=== PATIENT | female | born 1965 ===

== ENCOUNTER 2020-12-12 08:56 | Emergency (ER) | payer MEDICAID ==
[~2020-12-12 08:56] MED LIST: EPINEPHrine 1 MG/10 ML SYRINGE ONE; SODIUM BICARB 8.4% 50 MEQ/50 ML SYRINGE IV ONE
--- NOTE | 2020-12-12 09:31 | Event Note ---
ED Screening Note ED Screening Note: 55-year-old female presents with chest tightness, SOB and bilateral legs swelling. HX of cardiac. This initial assessment/diagnostic orders/clinical plan/treatment(s) is/are subject to change based on patients health status, clinical progression and re- assessment by fellow clinical providers in the ED. Further treatment and workup at subsequent clinical providers discretion. Patient/guardian urged not to elope from the ED as their condition may be serious if not clinically assessed and managed. Initial orders include: cardiac workup
[2020-12-12 09:54] LABS: Basophils % (Auto) 0.8 % (0.0-1.8); Eosinophils # (Auto) 0.4 K/mm3 (0.0-0.4); Eosinophils % (Auto) 5.8 % (0.0-4.3); Hematocrit 34.4 % (30.3-42.9); Hemoglobin 10.9 gm/dl (10.1-14.3); Lymphocytes # (Auto) 1.4 K/mm3 (1.2-5.4); Lymphocytes % (Auto) 21.3 % (13.4-35.0); Mean Corpuscular HGB Conc 32 % (30-34); Mean Corpuscular Volume 82 fl (79-97); Monocytes # (Auto) 0.6 K/mm3 (0.0-0.8); Monocytes % (Auto) 8.7 % (0.0-7.3); Platelet Count 366 K/mm3 (140-440); Red Blood Count 4.19 M/mm3 (3.65-5.03); Red Cell Distribution Width 19.7 % (13.2-15.2)
--- NOTE | 2020-12-12 10:03 | XRay Report ---
CHEST 1 VIEW 12/12/2020 9:48 AM INDICATION / CLINICAL INFORMATION: Dyspnea. COMPARISON: None available. FINDINGS: SUPPORT DEVICES: None. HEART / MEDIASTINUM: No significant abnormality. LUNGS / PLEURA: No significant pulmonary or pleural abnormality. No pneumothorax. ADDITIONAL FINDINGS: No significant additional findings. IMPRESSION: 1. No acute findings. Signer Name: Juliano Brooks DO Signed: 12/12/2020 9:58 AM Workstation Name: [id number]
[2020-12-12 10:04] LABS: INR 1.08 (0.87-1.13)
[2020-12-12 10:05] LABS: Partial Thromboplastin Time 36.8 Sec. (24.2-36.6)
[2020-12-12 10:10] LABS: Alanine Aminotransferase 14 units/L (7-56); Albumin 3.4 g/dL (3.9-5); BUN/Creatinine Ratio 17; Blood Urea Nitrogen 17 mg/dL (7-17); Calcium 8.6 mg/dL (8.4-10.2); Hemolysis Index 19
--- NOTE | 2020-12-12 10:18 | Emergency Department Report ---
<JAS VILLELA - Last Filed: 12/12/20 20:20> ED Shortness of Breath HPI - General Chief Complaint: Dyspnea/Respdistress Stated Complaint: PAIN IN WAIST/KNEE AND FEET/GOUT Time Seen by Provider: 12/12/20 09:29 - Related Data Allergies Allergy/AdvReac Type Severity Reaction Status Date / Time No Known Allergies Allergy Verified 12/12/20 09:08 ED Course - Reevaluation(s) Reevaluation #1: 12/12/20 20:03 I was walking through fast track and saw the door opened in room 35 and the patient appeared to be unresponsive and slumped slightly over to the left side I immediately called a CODE BLUE pts cardiac rhythm monitoring was not connected, I advised nurse to connect monitor and to get a crash cart in a respiratory cart I advised nurse to inform attending physician Able to palpate a right radial pulse Oxygen saturations 100% on a nonrebreather Patient is responsive to painful stimuli and suctioning Dr. Robertson, hospitalist was called to bedside to take over care of patient and advised to order a CT head without contrast and a CT angio chest ED Medical Decision Making - Lab Data Result diagrams: 12/12/20 09:39 12/12/20 09:39 ED Disposition Clinical Impression: CHF exacerbation, Bilateral leg edema, SOB (shortness of breath), Hx of deep venous thrombosis, Anticoagulant long-term use, Hyponatremia Disposition: 20 Condition: Stable Referrals: PRIMARY CARE,MD [Primary Care Provider] - 3-5 Days <LILIYA RECINOS - Last Filed: 12/15/20 06:39> ED Shortness of Breath HPI - General Source: patient, old records reviewed (NO PREVIOUS VISIT [facility]) Mode of arrival: Wheelchair Limitations: Physical Limitation - History of Present Illness Initial Comments: 55-year-old female the past medical history morbid obesity, gout, CHF, hypertension, DVT x3 currently on Eliquis presents to the hospital complaining of worsening lower extremity edema for the past 2 days and inability to walk secondary to severe edema. Patient also complains of shortness of breath worse with exertion. She has chronic orthopnea for the past 12 years without change. She denies diagnosis of sleep apnea. She has been compliant with her Eliquis 5 mg daily, Lasix 40 mg daily, and allopurinol 100 mg daily however, she has been noncompliant with her blood pressure medication because it gives her headache. Patient reports symptoms started 2 months ago with feet pain secondary to gout and swelling started after using Epson salt soaks for suspected gout. She has been in and out of [facility] and states they keep giving her steroids shots and Percocet and discharged her home. For the past 2 days so swelling has been more severe and she is unable to ambulate. She reports she had outpatient echocardiogram by her [place] train station agent on December 03 but does not know the results. Patient denies chest pain, cough, fever. She is unvaccinated for Covid ED Review of Systems ROS: Stated complaint: PAIN IN WAIST/KNEE AND FEET/GOUT Other details as noted in HPI Comment: All other systems reviewed and negative ED Past Medical Hx - Past Medical History Previous Medical History?: Yes Hx Hypertension: Yes Hx Congestive Heart Failure: Yes Hx Deep Vein Thrombosis: Yes Hx Asthma: Yes (Gout) Additional medical history: Bronchitis - Surgical History Past Surgical History?: Yes Additional Surgical History: hemmeroids. - Social History Smoking Status: Current Every Day Smoker Substance Use Type: Alcohol, Marijuana ED Physical Exam - General Limitations: Physical Limitation - Other Other exam information: General: No acute distress Head: Atraumatic Eyes: normal appearance ENT: Moist mucous membranes Neck: Normal appearance, no midline tenderness Chest: Clear to auscultation bilaterally, tachypnea noted with speaking CV: Regular rate and rhythm Abdomen: Soft, normal bowel sounds, nontender, nondistended, no rebound or guarding Back: Normal inspection Extremity: Significant bilateral lower extremity edema extending to thigh. No calf tenderness, no warmth, no erythema Neuro: Alert O x 3, no facial asymmetry, speech clear, no gross motor sensory deficit Psych: Appropriate behavior ED Course Vital Signs 12/12/20 12/12/20 12/12/20 08:58 11:45 16:00 Temperature 98.4 F Pulse Rate 81 Respiratory 26 H Rate Blood Pressure 119/56 Blood Pressure 181/94 [Left] O2 Sat by Pulse 100 96 Oximetry 12/12/20 12/12/20 17:35 21:16 Temperature Pulse Rate 100 H Respiratory 19 18 Rate Blood Pressure Blood Pressure [Left] O2 Sat by Pulse 96 Oximetry ED Medical Decision Making - Lab Data Result diagrams: 12/12/20 09:39 12/12/20 09:39 Lab Results 12/12/20 12/12/20 12/12/20 Range/Units 09:39 09:39 09:39 WBC 6.6 (4.5-11.0) K/mm3 RBC 4.19 (3.65-5.03) M/mm3 Hgb 10.9 (10.1-14.3) gm/dl Hct 34.4 (30.3-42.9) % MCV 82 (79-97) fl MCH 26 L (28-32) pg MCHC 32 (30-34) % RDW 19.7 H (13.2-15.2) % Plt Count 366 (140-440) K/mm3 Lymph % (Auto) 21.3 (13.4-35.0) % [place] % (Auto) 8.7 H (0.0-7.3) % Eos % (Auto) 5.8 H (0.0-4.3) % Baso % (Auto) 0.8 (0.0-1.8) % Lymph # (Auto) 1.4 (1.2-5.4) K/mm3 [place] # (Auto) 0.6 (0.0-0.8) K/mm3 Eos # (Auto) 0.4 (0.0-0.4) K/mm3 Baso # (Auto) 0.0 (0.0-0.1) K/mm3 Seg Neutrophils % 63.4 (40.0-70.0) % Seg Neutrophils # 4.2 (1.8-7.7) K/mm3 PT 14.5 (12.2-14.9) Sec. INR 1.08 (0.87-1.13) APTT 36.8 H (24.2-36.6) Sec. Sodium 128 L (137-145) mmol/L Potassium 4.4 (3.6-5.0) mmol/L Chloride 87.6 L (98-107) mmol/L Carbon Dioxide 28 (22-30) mmol/L Anion Gap 17 mmol/L BUN 17 (7-17) mg/dL Creatinine 1.0 (0.6-1.2) mg/dL Estimated GFR 58 ml/min BUN/Creatinine Ratio 17 % Glucose 123 H (65-100) mg/dL Calcium 8.6 (8.4-10.2) mg/dL Total Bilirubin < 0.20 (0.1-1.2) mg/dL AST 18 (5-40) units/L ALT 14 (7-56) units/L Alkaline Phosphatase 107 (35-129) units/L Troponin T < 0.010 (0.00-0.029) ng/mL NT-Pro-B Natriuret Pep 1979 H (0-900) pg/mL Total Protein 7.5 (6.3-8.2) g/dL Albumin 3.4 L (3.9-5) g/dL Albumin/Globulin Ratio 0.8 % - EKG Data -: EKG Interpreted by [place] EKG shows normal: sinus rhythm, intervals (NORMAL), QRS complexes (NORMAL), ST-T waves (NO STEMI) Rate: normal - EKG Data When compared to previous EKG there are: previous EKG unavailable - Radiology Data Radiology results: report reviewed (Chest x-ray: No acute findings) - Medical Decision Making 55-year-old female with past medical history of obesity, CHF, DVT presents to the hospital with significant bilateral lower extremity edema and shortness of breath without hypoxia or tachycardia. Findings suggestive of CHF exacerbation with failed diuresis from her p.o. Lasix 40 mg. Patient compliant with her Eliquis 5 mg for history of DVT. Chest x-ray unremarkable. EKG unremarkable. Patient will be admitted to the hospitalist service for further treatment. IV Lasix ordered in the ED. mild hyponatremia noted Critical Care Time: No Critical care attestation.: If time is entered above; I have spent that time in minutes in the direct care of this critically ill patient, excluding procedure time. ED Disposition Is pt being admited?: Yes Time of Disposition: 10:18 (dR [place])
[2020-12-12] MEDS ORDERED: FUROSEMIDE 40 MG/4 ML INJ IV ONE (10:20)
[2020-12-12] MEDS ORDERED: ACETAMINOPHEN 325 MG TAB PO PRN (11:45)
[2020-12-12] MEDS ORDERED: ONDANSETRON 4 MG/2 ML INJ IV PRN (11:45)
--- NOTE | 2020-12-12 11:45 | History and Physical Report ---
History of Present Illness Date of examination: 12/12/20 Date of admission: 12/12/2020. Chief complaint: SOB, lower extremity swelling History of present illness: 55-year-old female the past medical history morbid obesity, gout, CHF, hypertension, DVT x3 currently on Eliquis presents to the hospital complaining of worsening lower extremity edema for the past 2 days and inability to walk secondary to severe edema. Patient also complains of shortness of breath worse with exertion. She has chronic orthopnea for the past 12 years without change. She denies diagnosis of sleep apnea. She has been compliant with her Eliquis 5 mg daily, Lasix 40 mg daily, and allopurinol 100 mg daily however, she has been noncompliant with her blood pressure medication because it gives her headache. Patient reports symptoms started 2 months ago with feet pain secondary to gout and swelling started after using Epson salt soaks. She has been in and out of [facility] and states they keep giving her steroids shots and Percocet and discharged her home. For the past 2 days so swelling has been more severe and she is unable to ambulate. She reports she had outpatient echocardiogram by her [place] helper marble finisher on December 03 but does not know the results. Patient denies chest pain, cough, fever. She is unvaccinated for Covid Past History Past Medical History: DVT, heart failure, hypertension, other (Gout, obesity) Past Surgical History: No surgical history Social history: no significant social history Family history: no significant family history Medications and Allergies Allergies Allergy/AdvReac Type Severity Reaction Status Date / Time No Known Allergies Allergy Verified 12/12/20 09:08 Review of Systems All systems: negative Exam - Constitutional Vitals: Temp Pulse Resp BP Pulse Ox 98.4 F 81 26 H 119/56 100 12/12/20 08:58 12/12/20 08:58 12/12/20 08:58 12/12/20 08:58 12/12/20 08:58 General appearance: Present: no acute distress, well-nourished - EENT Eyes: Present: PERRL ENT: hearing intact, clear oral mucosa - Neck Neck: Present: supple, normal ROM - Respiratory Respiratory effort: normal Respiratory: bilateral: diminished, rales - Cardiovascular Heart Sounds: Present: S1 & S2. Absent: rub, click - Extremities Extremities: pulses symmetrical Extremity abnormal: edema (4 +) Peripheral Pulses: within normal limits - Abdominal General gastrointestinal: Present: soft, non-tender, non-distended, normal bowel sounds Female genitourinary: Present: normal - Integumentary Integumentary: Present: clear, warm, dry - Musculoskeletal Musculoskeletal: gait normal, strength equal bilaterally - Psychiatric Psychiatric: appropriate mood/affect, intact judgment & insight - Neurologic Neurologic: CNII-XII intact, moves all extremities HEART Score - HEART Score Troponin: Troponin T < 0.010 ng/mL (0.00-0.029) 12/12/20 09:39 Results - Labs CBC & Chem 7: 12/12/20 09:39 10 09:39 Labs: Laboratory Last Values WBC 6.6 K/mm3 (4.5-11.0) 12/12/20 09:39 RBC 4.19 M/mm3 (3.65-5.03) 12/12/20 09:39 Hgb 10.9 gm/dl (10.1-14.3) 12/12/20 09:39 Hct 34.4 % (30.3-42.9) 12/12/20 09:39 MCV 82 fl (79-97) 12/12/20 09:39 MCH 26 pg (28-32) L 12/12/20 09:39 MCHC 32 % (30-34) 12/12/20 09:39 RDW 19.7 % (13.2-15.2) H 12/12/20 09:39 Plt Count 366 K/mm3 (140-440) 12/12/20 09:39 Lymph % (Auto) 21.3 % (13.4-35.0) 12/12/20 09:39 [place] % (Auto) 8.7 % (0.0-7.3) H 12/12/20 09:39 Eos % (Auto) 5.8 % (0.0-4.3) H 12/12/20 09:39 Baso % (Auto) 0.8 % (0.0-1.8) 12/12/20 09:39 Lymph # (Auto) 1.4 K/mm3 (1.2-5.4) 12/12/20 09:39 [place] # (Auto) 0.6 K/mm3 (0.0-0.8) 12/12/20 09:39 Eos # (Auto) 0.4 K/mm3 (0.0-0.4) 12/12/20 09:39 Baso # (Auto) 0.0 K/mm3 (0.0-0.1) 12/12/20 09:39 Seg Neutrophils % 63.4 % (40.0-70.0) 12/12/20 09:39 Seg Neutrophils # 4.2 K/mm3 (1.8-7.7) 12/12/20 09:39 PT 14.5 Sec. (12.2-14.9) 12/12/20 09:39 INR 1.08 (0.87-1.13) 12/12/20 09:39 APTT 36.8 Sec. (24.2-36.6) H 12/12/20 09:39 Sodium 128 mmol/L (137-145) L 12/12/20 09:39 Potassium 4.4 mmol/L (3.6-5.0) 12/12/20 09:39 Chloride 87.6 mmol/L (98-107) L 12/12/20 09:39 Carbon Dioxide 28 mmol/L (22-30) 12/12/20 09:39 Anion Gap 17 mmol/L 12/12/20 09:39 BUN 17 mg/dL (7-17) 12/12/20 09:39 Creatinine 1.0 mg/dL (0.6-1.2) 12/12/20 09:39 Estimated GFR 58 ml/min 12/12/20 09:39 BUN/Creatinine Ratio 17 % 12/12/20 09:39 Glucose 123 mg/dL (65-100) H 12/12/20 09:39 Calcium 8.6 mg/dL (8.4-10.2) 12/12/20 09:39 Total Bilirubin < 0.20 mg/dL (0.1-1.2) 12/12/20 09:39 AST 18 units/L (5-40) 12/12/20 09:39 ALT 14 units/L (7-56) 12/12/20 09:39 Alkaline Phosphatase 107 units/L (35-129) 12/12/20 09:39 Troponin T < 0.010 ng/mL (0.00-0.029) 12/12/20 09:39 NT-Pro-B Natriuret Pep 1979 pg/mL (0-900) H 12/12/20 09:39 Total Protein 7.5 g/dL (6.3-8.2) 12/12/20 09:39 Albumin 3.4 g/dL (3.9-5) L 12/12/20 09:39 Albumin/Globulin Ratio 0.8 % 12/12/20 09:39 Assessment and Plan Assessment and plan: Acute CHF. Hypertension History of DVT History of gout Morbid obesity 12/12/2020. Patient will be admitted and placed on heart failure exacerbation pathway. We will attempt to obtain old records from [place] to ascertain systolic/diastolic function. Consult cardiology for further evaluation. The patient will be treated with IV Lasix. BNP is mildly elevated at 1900.
[2020-12-12] MEDS ORDERED: HYDROcodone/ACETAMINOPHEN 5-325 MG TAB PO PRN (11:46)
[2020-12-12] MEDS ORDERED: MORPHINE 4 MG/1 ML INJ IV PRN (11:46)
[2020-12-12 17:34] VITALS: BP 181/94
[2020-12-12] MEDS ORDERED: NALOXONE 2 MG/2 ML INJ ONE (20:25)
--- NOTE | 2020-12-12 21:05 | Procedure Note ---
Pre-op diagnosis: Acute hypoxemic respiratory failure, acute hypercapnic respiratory failure Post-op diagnosis: same Procedure: Right internal jugular vein central line placement. Under ultrasound guidance A timeout was taken to verify the correct patient correct procedure and correct operative site. The patient was prepped and draped in the usual sterile fashion. Local anesthesia was attained with lidocaine 1%. The ultrasound was utilized to localize the right internal jugular vein without difficulty. The Seldinger technique was used to access the right internal jugular vein. A seeker needle was used to access the right internal jugular vein under ultrasound guidance a guidewire was subsequently passed through the seeker needle into the right internal jugular vein without difficulty. The seeker needle was subsequently removed over the guidewire. A scalpel was used to incise the skin. A dilator was then inserted over the guidewire into the right internal jugular vein without difficulty and subsequently removed. A preflushed triple-lumen catheter was then advanced into the right internal jugular vein without difficulty. All 3 ports flush and draw with ease. The triple-lumen was sewn in place. A Biopatch was placed at the insertion site. Anesthesia: local Surgeon: RICHAR RAMIREZ Estimated blood loss: none Pathology: none Condition: critical Disposition: ICU
--- NOTE | 2020-12-12 21:07 | Event Note ---
Date: 12/12/20 Patient was found unresponsive. I was notified and presented to bedside. The patient was found to be in respiratory distress. An arterial blood gas was ordered. And intubation was attempted but the patient was found to have a positive gag reflex and was able to protect her airway without difficulty. The patient was subsequently placed on noninvasive positive pressure ventilation. With repeat arterial blood gas in 60 minutes. Patient found to have hypercapnic respiratory failure. Patient treated with hyperventilation and repeat arterial blood gas in 1 hour. 60 minutes critical care time dedicated to patient care.
--- NOTE | 2020-12-12 22:13 | XRay Report ---
CHEST 1 VIEW 12/12/2020 9:00 PM INDICATION / CLINICAL INFORMATION: central line placement. COMPARISON: 12/12/2020 FINDINGS: SUPPORT DEVICES: Right IJ central venous catheter at the upper SVC. HEART / MEDIASTINUM: No significant abnormality. LUNGS / PLEURA: Increased patchy peripheral airspace opacities. No pneumothorax. ADDITIONAL FINDINGS: No significant additional findings. IMPRESSION: 1. Right IJ central venous catheter terminating at the upper SVC 2. Multifocal patchy airspace opacities. Signer Name: Juliano Brooks DO Signed: 12/12/2020 10:09 PM Workstation Name: [id number]
[2020-12-12] MEDS ORDERED: ETOMIDATE 20 MG/10 ML INJ IV ONE (22:32)
--- NOTE | 2020-12-13 00:01 | Event Note ---
Date: 12/12/20 I was called by the nurse to assess the patient in room 21, Ms. Vital. Patient has been admitted with acute on chronic respiratory failure secondary to COPD, CHF and bilateral pneumonia. Patient is tachypneic, with significant altered mental status and agitation. I reviewed patient ABG showed pH of 6.9 and PCO2 of 155. Patient is already on BiPAP with no improvement. Patient will require emergency intubation. No consent obtained since this is an emergency procedure. Using benefits assistant intubation, patient given etomidate and rocuronium. Using a glidscope, I was unable to visualized the cords secondary to redundant tissues. Patient suctioned and Ambu bag to an oxygen saturation of 100%. Another attempt to intubate failed again. I immediately notified anesthesia and Dr. Montiel arrived to patient bedside. Dr. Montiel also attempted to intubate the patient and it was unsuccessful. He decided to do a surgical airway since patient oxygen saturation is dropping even with placing a LMA. Patient oxygenating well with surgical airway in place. Patient lost her pulse. CODE BLUE announced and CPR immediately started and patient was given epinephrine and bicarb. Patient rhythm showed asystole. ACLS continued with no return of circulation. Patient pronounced at 11:25 PM. For further information please review code sheets. Dr. Jones, hospitalist operations support analyst inform about the patient. Critical care time spent at bedside is 45 minutes.
[2020-12-13] MEDS ORDERED: ENOXAPARIN 40 MG/0.4 ML INJ SUB-Q SCH (10:00)
[2020-12-13] MEDS ORDERED: FUROSEMIDE 40 MG/4 ML INJ IV SCH (10:00)
--- NOTE | 2020-12-14 11:17 | Electrocardiograph Report ---
[facility] Test Date: 2020-12-12 Test Time: 09:37:28 Pat Name: [facility] Department: Room: A468 Gender: F Bellows Tester: ALEXANDER : 1965 Requested By: LILIYA RECINOS Order Number: [id number] Reading MD: Dayana Nelson Measurements Intervals [place] Rate: 89 P: 54 PA: 165 QRS: 53 QRSD: 89 T: 34 QT: 389 QTc: 475 Interpretive Statements Sinus rhythm Probable left atrial enlargement No previous ECG available for comparison Electronically Signed On 12-14-2020 11:16:59 EDT by Dayana Nelson
--- NOTE | 2020-12-27 11:22 | Death Summary ---
Summary - Providers Date of service: 12/27/20 Consults: 12/12/20 11:46 Consult to Physician [CONS] Routine Comment: Consulting Provider: GERARDO ALVAREZ Physician Instructions: Reason For Exam: chf - summary Date of admission: 12/12/20 Date of : 12/12/20 Reason for admission: sob Disposition: 55-year-old female the past medical history morbid obesity, gout, CHF, hypertension, DVT x3 currently on Eliquis presents to the hospital complaining of worsening lower extremity edema for the past 2 days and inability to walk secondary to severe edema. Patient also complains of shortness of breath worse with exertion. She has chronic orthopnea for the past 12 years without change. She denies diagnosis of sleep apnea. She has been compliant with her Eliquis 5 mg daily, Lasix 40 mg daily, and allopurinol 100 mg daily however, she has been noncompliant with her blood pressure medication because it gives her headache. Patient reports symptoms started 2 months ago with feet pain secondary to gout and swelling started after using Epson salt soaks. She has been in and out of [facility] and states they keep giving her steroids shots and Percocet and discharged her home. For the past 2 days so swelling has been more severe and she is unable to ambulate. She reports she had outpatient echocardiogram by her [facility] registered nurse on December 03 but does not know the results. The patient was admitted with diagnosis of acute hypoxic respiratory failure, acute heart failure exacerbation, hypertension, history of DVT (compliant on Eliquis), his tory of gout and morbid obesity. The patient was placed on the heart failure pathway. The patient was admitted to telemetry. Initial chest x-ray was negative but BNP was elevated at 1900. The patient was noted to have progressively worsening with regards to respiratory status. The patient was later placed on BiPAP but unfortunately did not tolerate the BiPAP well. Later during hospitalization, patient was found unresponsive and he patient was found to be in respiratory distress. An arterial blood gas was ordered. And intubation was attempted but the patient was found to have a positive gag reflex and was able to protect her airway without difficulty. The patient was subsequently placed on noninvasive positive pressure ventilation. With repeat arterial blood gas in 60 minutes. Patient found to have hypercapnic respiratory failure. Patient treated with hyperventilation and repeat arterial blood gas in 1 hour. 60 minutes critical care time dedicated to patient care per Dr. Chris's note. The patient further deteriorated and the patient was evaluated by the ER physician, Dr. Gibbs. There was an attempt to intubate the patient but there was much difficulty. Please see code note for details from Dr. Gibbs. Patient pronounced at 11:25 PM
== END 2020-12-12 23:50 ==
LOC: ED 08:56 → UNDOADMIN 11:45 → 4A 11:45 → ED 12-13 06:04
DX: I46.9 Cardiac arrest, cause unspecified (principal); E87.1 Hypo-osmolality and hyponatremia; I50.9 Heart failure, unspecified; R06.02 Shortness of breath; M79.89 Other specified soft tissue disorders; I82.409 Acute embolism and thrombosis of unspecified deep veins of unspecified lower extremity; Z79.01 Long term (current) use of anticoagulants; I12.9 Hypertensive chronic kidney disease with stage 1 through stage 4 chronic kidney disease, or unspecified chronic kidney disease
CPT/HCPCS: 31500; 36415; 36556; 71045; 80053; 82962; 83880; 84484; 85025; 85610; 85730; 92950; 93005; 94660; 96374; 96375; 99291; J0171; J1940; J2270; J2405; 99285; G0378; J2310